=== PATIENT | male | born 1970 | race Caucasian/White ===

== ENCOUNTER 2017-03-20 09:59 | Emergency (ER) | payer MEDICARE, OTHER ==
[2017-03-20 10:01] VITALS: BP 162/89; PULSE 89; RESP 17; TEMP 97.9; O2SAT 100
[2017-03-20 11:17] LABS: AUTOMATED NEUTROPHIL # 5.2 TH/MM3 (1.8-7.7); BASOPHIL # 0.1 TH/MM3 (0-0.2); BASOPHIL % 0.7 % (0.0-2.0); EOSINOPHIL # 0.3 TH/MM3 (0-0.4); EOSINOPHIL % 3.8 % (0.0-4.0); HEMATOCRIT 35.4 % (39.0-51.0); HEMO FLAGS DIFF FINAL; LYMPH % 14.9 % (9.0-44.0); LYMPHOCYTE # 1.1 TH/MM3 (1.0-4.8); MEAN CORPUSCULAR HEMOGLOBIN 30.6 PG (27.0-34.0); MEAN CORPUSCULAR HGB CONC 33.2 % (32.0-36.0); MONO % 7.3 % (0.0-8.0); NEUT % 73.3 % (16.0-70.0); PLATELET COUNT 175 TH/MM3 (150-450); RED BLOOD COUNT 3.84 MIL/MM3 (4.50-5.90); RED CELL DISTRIBUTION WIDTH 13.7 % (11.6-17.2); WHITE BLOOD COUNT 7.1 TH/MM3 (4.0-11.0)
[2017-03-20 11:33] LABS: ANION GAP 11 MEQ/L (5-15); AST (GOT) 34 U/L (15-37); BICARBONATE 18.1 MEQ/L (21.0-32.0); BLOOD UREA NITROGEN 78 MG/DL (7-18); CHLORIDE 113 MEQ/L (98-107); GLOMERULAR FILTRATION RATE 10 ML/MIN (>89); POTASSIUM 5.2 MEQ/L (3.5-5.1); SODIUM (NA) 142 MEQ/L (136-145)
[2017-03-20 11:37] LABS: ALKALINE PHOSPHATASE 125 U/L (45-117); ALT (GPT) 75 U/L (12-78); TOTAL BILIRUBIN ADULT 0.4 MG/DL (0.2-1.0)
--- NOTE | 2017-03-20 12:27 | PD ---
HPI Chief Complaint: Medical Clearance Time Seen by Provider: 12:27 Travel History International Travel<30 days: No Contact w/Intl Traveler<30days: No Traveled to known affect area: No History of Present Illness HPI 47 YO M with PMH of CKD, HTN, DMT2, insulin-dependent presents to the ED requestiong dialysis. The patient is from [place], on dialysis T,TH,SAT. He has missed 2 days of dialysis. He went to [facility] today to be dialyzed and state that he was told "that I missed too many." He denies somatic complaints on presentation. States " I want to be dialyzed and get back to vacation." Leaving town 03/23. PFSH Past Medical History Diabetes: Yes Patient Takes Glucophage: No Dialysis: Yes Hypertension: Yes Renal Failure: Yes Social History Alcohol Use: No Tobacco Use: No Substance Use: No Allergies-Medications (Allergen,Severity, Reaction): Coded Allergies: No Known Allergies (Unverified , 03/20/17) Reported Meds & Prescriptions Reported Meds & Active Scripts Active Active Prescriptions or Reported Medications Unobtainable Review of Systems Except as stated in HPI: all other systems reviewed are Neg Physical Exam Narrative GENERAL: Well-nourished, well-developed obese white male in no acute distress. SKIN: Focused skin assessment warm/dry. Well-healed AV fistula in the left upper arm, palpable thrill. HEAD: Normocephalic. EYES: No scleral icterus. No injection or drainage. NECK: Supple, trachea midline. No JVD or lymphadenopathy. CARDIOVASCULAR: Regular rate and rhythm without murmurs, gallops, or rubs. RESPIRATORY: Breath sounds clear and equal bilaterally. No accessory muscle use. GASTROINTESTINAL: Abdomen soft, non-tender, nondistended. Active bowel sounds. MUSCULOSKELETAL: No cyanosis. Mild pitting edema in the bilateral lower extremities. Moves all extremities spontaneously. BACK: Nontender without obvious deformity. No CVA tenderness. Data Data Last Documented VS Vital Signs Date Time Temp Pulse Resp B/P Pulse Ox O2 Delivery O2 Flow Rate FiO2 03/20/17 10:01 97.9 89 17 162/89 100 Orders Complete Blood Count With Diff (03/20/17 10:05) Comprehensive Metabolic Panel (03/20/17 10:05) Electrocardiogram (03/20/17 ) Labs Laboratory Tests Test 03/20/17 10:30 White Blood Count 7.1 TH/MM3 Red Blood Count 3.84 MIL/MM3 Hemoglobin 11.8 GM/DL Hematocrit 35.4 % Mean Corpuscular Volume 92.0 FL Mean Corpuscular Hemoglobin 30.6 PG Mean Corpuscular Hemoglobin 33.2 % Concent Red Cell Distribution Width 13.7 % Platelet Count 175 TH/MM3 Mean Platelet Volume 9.0 FL Neutrophils (%) (Auto) 73.3 % Lymphocytes (%) (Auto) 14.9 % Monocytes (%) (Auto) 7.3 % Eosinophils (%) (Auto) 3.8 % Basophils (%) (Auto) 0.7 % Neutrophils # (Auto) 5.2 TH/MM3 Lymphocytes # (Auto) 1.1 TH/MM3 Monocytes # (Auto) 0.5 TH/MM3 Eosinophils # (Auto) 0.3 TH/MM3 Basophils # (Auto) 0.1 TH/MM3 CBC Comment DIFF FINAL Differential Comment Sodium Level 142 MEQ/L Potassium Level 5.2 MEQ/L Chloride Level 113 MEQ/L Carbon Dioxide Level 18.1 MEQ/L Anion Gap 11 MEQ/L Blood Urea Nitrogen 78 MG/DL Creatinine 6.00 MG/DL Estimat Glomerular Filtration 10 ML/MIN Rate Random Glucose 223 MG/DL Calcium Level 9.0 MG/DL Total Bilirubin 0.4 MG/DL Aspartate Amino Transf 34 U/L (AST/SGOT) Alanine Aminotransferase 75 U/L (ALT/SGPT) Alkaline Phosphatase 125 U/L Total Protein 8.2 GM/DL Albumin 3.9 GM/DL MDM Medical Decision Making Medical Screen Exam Complete: Yes Emergency Medical Condition: Yes Differential Diagnosis CKD versus electrolyte abnormality versus arrhythmia versus Narrative Course 47 YO M with PMH of CKD, HTN, DMT2, insulin-dependent presents to the ED requesting hemodialysis. The patient is from [place], on dialysis T,TH,SAT. He has missed 2 days of dialysis. He went to [facility] today to be dialyzed and state that he was told "that I missed too many." He denies somatic complaints on presentation. States " I want to be dialyzed and get back to vacation." Leaving [facility] 03/23. Vitals reviewed. Physical exam reveals an obese white male in no acute distress. There is a well-healed AV fistula left arm with palpable thrill, physical examination was unremarkable. EKG rate 79, sinus rhythm. Normal intervals. Normal axis. Peaked T waves. Reviewed by Dr. Toney. CBC: WBC 7.1. Hemoglobin 11.8. CMP: Potassium 5.2. BUN 78, creatinine 6.0. GFR 10. Glucose 223. I spoke with Dr. Reyna who agrees to consult on the patient. I informed the patient and he would be admitted to the hospital to receive dialysis. At this point he pulled a piece of paper from his back pocket and stated that " this place told me that I needed labs and they would do it." I spoke with the nurse at [facility] who states that the patient has missed 3 appointments for dialysis. She helped to arrange an appointment at 4 PM this afternoon. The patient's labs results were faxed to the facility and the patient was provided with a copy of his lab work on disposition as well. I spoke with Dr. Reyna's PA to cancel the consult. I stressed repeatedly to the patient that he needed to be at the facility at 345 for his 4 PM appointment. He indicated understanding of instructions. He is stable discharged home. Diagnosis Primary Impression: Noncompliance Additional Impressions: ESRD (end stage renal disease) on dialysis Hyperkalemia Referrals: [facility] Additional Instructions: Report to [facility] dialysis center at the above address at 4 PM today. YOUR APPOINTMENT IS AT 4 PM. DO NOT SKIP THIS APPOINTMENT. Popliteal lab work has been faxed to the facility. Return to the ED for any urgent or emergent medical condition. Scripts Unable to Obtain Active Prescriptions or Reported Meds Disposition: 01 DISCHARGE HOME Condition: Stable Jessie Sanchez Mar 20, 2017 12:27
--- NOTE | 2017-03-21 18:20 | EKG ---
Date Performed: 03/20/2017 Time Performed: 10:10:55 PTAGE: 47 years EKG: Sinus rhythm NORMAL ECG NO PREVIOUS TRACING DOCTOR: Hilda Coronado Interpretating Date/Time 03/21/2017 18:18:42
== END 2017-03-20 14:01 | disposition home or self-care (01) ==
LOC: NEPE 09:59
DX: I12.0 Hypertensive chronic kidney disease with stage 5 chronic kidney disease or end stage renal disease (principal); N18.6 End stage renal disease; Z99.2 Dependence on renal dialysis; E11.22 Type 2 diabetes mellitus with diabetic chronic kidney disease; Z79.4 Long term (current) use of insulin; E87.5 Hyperkalemia; Z91.19 Patient's noncompliance with other medical treatment and regimen
CPT/HCPCS: 80053; 85025; 93005; 99284